=== PATIENT | female | born 1995 | race Two or more races ===

== ENCOUNTER 2022-09-23 09:19 | Emergency (ER) | payer MEDICAID ==
[~2022-09-23] VITALS: Ht 157.5 cm; Wt 78.0 kg
[2022-09-23 10:02] VITALS: BP 112/81
[2022-09-23] MEDS ORDERED: TOBR0.3S EACHEYE (10:48)
== END 2022-09-23 11:02 | disposition home or self-care (01) ==
LOC: ER 09:19
DX: H00.021 Hordeolum internum right upper eyelid (principal); Z79.2 Long term (current) use of antibiotics